=== PATIENT | female | born 2000 | race Hispanic/Latino ===

== ENCOUNTER 2020-09-11 03:43 | Emergency (ER) | payer SELFPAY ==
[2020-09-11 03:49] VITALS: BP 103/69
[2020-09-11] MEDS ORDERED: ACETAMINOPHEN 325 MG TAB PO ONE (04:06)
[2020-09-11] MEDS ORDERED: IBUPROFEN 600 MG TAB PO ONE (04:06)
--- NOTE | 2020-09-11 04:46 | XRay Report ---
. XR hand 3+V LT, XR wrist 3+V LT INDICATION / CLINICAL INFORMATION: Pain - Traumatic injury. COMPARISON: None available. FINDINGS: Mild irregularity of the anterolateral radial cortex which on lateral radiograph appears is a tiny [place] protrusion arising from the epiphysis. No definite fracture of the wrist or hand. Normal alignmen t. Joint spaces are preserved. No destructive osseous lesion or suspicious periosteal reaction. Impression: 1. Irregularity of the distal lateral radial cortex is most consistent with a normal radial beak whic h is a common anatomic variant. No definite fracture. Signer Name: Mick Kimball MD Signed: 09/11/2020 4:42 AM Workstation Name: [id number]
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
== END 2020-09-11 06:00 | disposition home or self-care (01) ==
LOC: ED 03:43
DX: S60.222A Contusion of left hand, initial encounter (principal); S63.502A Unspecified sprain of left wrist, initial encounter; Z79.899 Other long term (current) drug therapy; Y04.2XXA Assault by strike against or bumped into by another person, initial encounter; Y93.89 Activity, other specified; Y92.89 Other specified places as the place of occurrence of the external cause; Y99.8 Other external cause status